=== PATIENT | female | born 1960 | race American Indian/Alaskan Native ===

== ENCOUNTER 2018-04-04 16:41 | Emergency (ER) | payer MEDICARE ==
[2018-04-04 17:53] LABS: Basophils # (Auto) 0.1 K/mm3 (0.0-0.1); Basophils % (Auto) 0.7 % (0.0-1.8); Eosinophils # (Auto) 0.1 K/mm3 (0.0-0.4); Eosinophils % (Auto) 1.6 % (0.0-4.3); Hematocrit 33.9 % (30.3-42.9); Lymphocytes # (Auto) 2.1 K/mm3 (1.2-5.4); Lymphocytes % (Auto) 30.6 % (13.4-35.0); Mean Corpuscular HGB Conc 32 % (30-34); Mean Corpuscular Volume 73 fl (79-97); Monocytes # (Auto) 0.3 K/mm3 (0.0-0.8); Platelet Count 489 K/mm3 (140-440); Red Blood Count 4.64 M/mm3 (3.65-5.03); Red Cell Distribution Width 18.3 % (13.2-15.2)
[2018-04-04 17:57] LABS: Mean Corpuscular Hemoglobin 24 pg (28-32)
[2018-04-04 18:11] LABS: BUN/Creatinine Ratio 14; Blood Urea Nitrogen 10 mg/dL (7-17); Calcium 9.2 mg/dL (8.4-10.2); Hemolysis Index 0
--- NOTE | 2018-04-04 18:51 | XRay Report ---
FINAL REPORT EXAM: XR CHEST ROUTINE 2V HISTORY: Shortness of breath TECHNIQUE: 2 view examination of the chest PRIORS: None FINDINGS: There is degenerative spondylosis of the thoracic spine. There is no consolidated pneumonia, effusion, or pneumothorax. Cardiac silhouette size is normal without vascular congestion. IMPRESSION: No evidence of acute cardiopulmonary disease
[2018-04-04] MEDS ORDERED: LIDOCAINE VISCOUS 2% PO ONE (20:10)
[2018-04-04] MEDS ORDERED: ALUM-MAG HYDROX-SIMETH 200-200-20MG/5ML PO ONE (20:10)
--- NOTE | 2018-04-04 20:42 | Emergency Department Report ---
ED Back Pain/Injury HPI - General Chief Complaint: Fall Stated Complaint: FALL Time Seen by Provider: 04/04/18 19:55 Source: patient Limitations: No Limitations - History of Present Illness Initial Comments: Ms mobley is a 57 year-old woman with hx of HTN, DM, asthma who presents from home with back pain, chest pain. Had fall this morning around 1045. Woke up , stood up from bed and became light headed. No CP or shortness of breath or palpitations. Sat down on the toilet. Still felt light headed. Had syncopal episode. Reports that she was wedged between toilet and shower, did not hit her head. Was able to free herself and called EMS. Declined transport as her vitals and exam were fine. No has mild R lower back pain that radiates thruogh her R hip. Able to walk with only minimal pain. Also with upper abdomen discomfort that radiates up into her midline chest. Feels like previous episodes of GERD. She does take zantac. No shortness of breath. No further syncopal episodes. No vomiting, no weakness, no tingling, no NGUYỄN, no changes in vision. MD Complaint: back pain, other (chest pain) Onset/Timin,045 -: Gradual Place: home Radiation: none Severity: mild Quality: dull Improves With: other (rest) Worsens With: movement Associated Symptoms: syncope - Related Data Previous Rx's Medication Instructions Recorded Last Taken Type Pen Needle, Diabetic [1St Tier 1 each QID #100 dis.needle 07/01/14 Unknown Rx Unifine Pentips] Tiotropium [Spiriva] 18 mcg IH QDAY #1 box 07/01/14 Unknown Rx Albuterol Sulfate [Ventolin HFA] 2 puff IH Q4H PRN #1 hfa.aer.ad 09/16/16 Unknown Rx Fluticasone/Salmeterol [Advair 1 puff IH BID #1 disk.w.dev 09/16/16 Unknown Rx Diskus 250-50 mcg] ALBUTEROL NEB's [Proventil 0.083% 2.5 mg IH Q6HRT nebu 03/28/17 Unknown Rx NEBS] Detemir (Nf) [Levemir (Nf)] 60 units SUB-Q QHS units 03/28/17 Unknown Rx Levothyroxine [Synthroid] 100 mcg PO DAILY@0600 tablet 03/28/17 Unknown Rx Lisinopril [Zestril TAB] 40 mg PO QDAY tablet 03/28/17 Unknown Rx amLODIPine [Norvasc] 10 mg PO DAILY tablet 03/28/17 Unknown Rx metFORMIN [Glucophage] 500 mg PO BIDDIAB tablet 03/28/17 Unknown Rx Prednisone [predniSONE 5 mg (6-Day 5 mg PO .TAPER #1 tab.ds.pk 02/17/18 Unknown Rx Pack, 21 Tabs)] Allergies Allergy/AdvReac Type Severity Reaction Status Date / Time No Known Allergies Allergy Verified 06/27/14 17:07 ED Review of Systems ROS: Stated complaint: FALL Other details as noted in HPI Comment: All other systems reviewed and negative ED Past Medical Hx - Past Medical History Previous Medical History?: Yes Hx Hypertension: Yes Hx Heart Attack/AMI: No Hx Congestive Heart Failure: Yes Hx Diabetes: Yes (12YRS) Hx Sickle Cell Disease: No Hx Headaches / Migraines: Yes Hx Seizures: No Hx Asthma: Yes Hx COPD: Yes Hx Dementia: No Hx HIV: No Additional medical history: hypothyroid - Surgical History Past Surgical History?: Yes Additional Surgical History: c-spine fusion, hysterectomy - Social History Smoking Status: Former Smoker Substance Use Type: Prescribed - Medications Home Medications: Home Medications Medication Instructions Recorded Confirmed Last Taken Type Pen Needle, Diabetic [1St Tier 1 each QID #100 dis.needle 07/01/14 02/14/18 Unknown Rx Unifine Pentips] Tiotropium [Spiriva] 18 mcg IH QDAY #1 box 07/01/14 02/14/18 Unknown Rx Albuterol Sulfate [Ventolin HFA] 2 puff IH Q4H PRN #1 hfa.aer.ad 09/16/16 Unknown Rx Fluticasone/Salmeterol [Advair 1 puff IH BID #1 disk.w.dev 09/16/16 02/14/18 Unknown Rx Diskus 250-50 mcg] ALBUTEROL NEB's [Proventil 0.083% 2.5 mg IH Q6HRT nebu 03/28/17 02/14/18 Unknown Rx NEBS] Detemir (Nf) [Levemir (Nf)] 60 units SUB-Q QHS units 03/28/17 02/14/18 Unknown Rx Levothyroxine [Synthroid] 100 mcg PO DAILY@0600 tablet 03/28/17 02/14/18 Unknown Rx Lisinopril [Zestril TAB] 40 mg PO QDAY tablet 03/28/17 02/14/18 Unknown Rx amLODIPine [Norvasc] 10 mg PO DAILY tablet 03/28/17 02/14/18 Unknown Rx metFORMIN [Glucophage] 500 mg PO BIDDIAB tablet 03/28/17 02/14/18 Unknown Rx Prednisone [predniSONE 5 mg (6-Day 5 mg PO .TAPER #1 tab.ds.pk 02/17/18 Unknown Rx Pack, 21 Tabs)] ED Physical Exam - General Limitations: No Limitations General appearance: alert, in no apparent distress - Head Head exam: Present: atraumatic, normocephalic - Eye Eye exam: Present: normal appearance - ENT ENT exam: Present: mucous membranes moist - Neck Neck exam: Present: normal inspection, full ROM. Absent: tenderness - Respiratory Respiratory exam: Present: normal lung sounds bilaterally. Absent: respiratory distress, wheezes, rales, chest wall tenderness - Cardiovascular Cardiovascular Exam: Present: regular rate, normal rhythm. Absent: systolic murmur, diastolic murmur, rubs, gallop - GI/Abdominal GI/Abdominal exam: Present: soft, tenderness (mild epigastric ttp), normal bowel sounds. Absent: distended - Extremities Exam Extremities exam: Present: normal inspection - Back Exam Back exam: Present: normal inspection, paraspinal tenderness (R mild paraspinal ttp without bruising, swelling). Absent: vertebral tenderness - Neurological Exam Neurological exam: Present: alert, oriented X3, normal gait - Psychiatric Psychiatric exam: Present: normal affect, normal mood - Skin Skin exam: Present: warm, dry, intact, normal color. Absent: rash ED Course Vital Signs 04/04/18 04/04/18 16:45 19:53 Temperature 98.8 F Pulse Rate 103 H 90 Respiratory 20 12 Rate Blood Pressure 165/108 Blood Pressure 136/98 [Left] O2 Sat by Pulse 100 100 Oximetry ED Medical Decision Making - Lab Data Result diagrams: 04/04/18 17:15 04/04/18 17:15 - EKG Data -: EKG Interpreted by Me (1659; HR 97, sinus, normal axis, intervals wnl, no ischemic ST changes) No standard instances Rhythm: NSR (2215: HR 81, sinus, normal axis, intervals wnl, no ischemic St changes) - Radiology Data Ordering Physician: BONNY GARCIA MD Date of Service: 04/04/18 Procedure(s): XR chest routine 2V Accession Number(s): [id number] cc: ED MD RADHA Fluoro Time In Minutes: FINAL REPORT EXAM: XR CHEST ROUTINE 2V HISTORY: Shortness of breath TECHNIQUE: 2 view examination of the chest PRIORS: None FINDINGS: There is degenerative spondylosis of the thoracic spine. There is no consolidated pneumonia, effusion, or pneumothorax. Cardiac silhouette size is normal without vascular congestion. IMPRESSION: No evidence of acute cardiopulmonary disease - Medical Decision Making Ms Mobley is a 57 year-old woman who presents with back pain after reported syncopal episode this morning. Mild lumbar back pain. No evidence of trauma: bruising/swelling. no midline spinal ttp. neuro intact. Walks with steady gait. Soudns like the syncopal event was related to hypotension/orthostasis. No chest pain/shortness of breath/palpitations. Now with GERD-like symptoms that radiates up into her chest. Given GI cocktail with initial improvement in symptoms. Initial trop neg. Initial EKG neg. before discharge, complaining of recurrent epigastri pain that radiates to her mid sternum. Again, low suspicion of ACS. Ordered another EKG/trop. Repeat also negative. Given PPI/H2 maryjane. Has zantac at home, but ran out. Some improvement. Has pcp appt friday. Will give PPI and H2 maryjane for home. No further issues with back pain. Given strict return precautions for chest pain, syncope, GERD, back pain. No red flag symptoms for back pain. Has been ambulatory and using the bathroom without difficulty. PCP appt Friday. Critical care attestation.: If time is entered above; I have spent that time in minutes in the direct care of this critically ill patient, excluding procedure time. ED Disposition Clinical Impression: Back pain Qualifiers: Back pain location: low back pain Chronicity: acute Back pain laterality: right Sciatica presence: without sciatica Qualified Code(s): M54.5 - Low back pain Abdominal pain Qualifiers: Abdominal location: epigastric Qualified Code(s): R10.13 - Epigastric pain Disposition: DC-01 TO HOME OR SELFCARE Is pt being admited?: No Does the pt Need Aspirin: No Condition: Stable Instructions: Gastroesophageal Reflux Disease (ED), Low Back Strain (ED) Referrals: PRIMARY CARE, [Primary Care Provider] - 04/07/18
[2018-04-04] MEDS ORDERED: PEPCID PO ONE (20:59)
[2018-04-04] MEDS ORDERED: PROTONIX PO SCH (21:00)
[2018-04-04] MEDS ORDERED: TYLENOL PO ONE (21:58)
[2018-04-04 23:19] VITALS: BP 133/85
== END 2018-04-04 23:22 | disposition home or self-care (01) ==
LOC: ED 16:41
DX: M54.5 Low back pain (principal); R10.13 Epigastric pain; I10 Essential (primary) hypertension; I50.9 Heart failure, unspecified; E11.9 Type 2 diabetes mellitus without complications; G43.909 Migraine, unspecified, not intractable, without status migrainosus; J45.909 Unspecified asthma, uncomplicated; E03.9 Hypothyroidism, unspecified; Z90.710 Acquired absence of both cervix and uterus; Z87.891 Personal history of nicotine dependence; W18.30XA Fall on same level, unspecified, initial encounter; Y93.89 Activity, other specified; Y99.8 Other external cause status; Y92.89 Other specified places as the place of occurrence of the external cause
CPT/HCPCS: 36415; 71046; 80048; 84484; 85025; 93005; 93010

== ENCOUNTER 2022-01-08 20:31 | Emergency (ER) | payer MEDICARE ==
[2022-01-08 21:08] VITALS: BP 137/83
--- NOTE | 2022-01-08 21:42 | XRay Report ---
LEFT HIP 2 VIEW(S) INDICATION / CLINICAL INFORMATION: FALL COMPARISON: None available. FINDINGS: BONES / JOINT(S): No acute fracture or subluxation. Mild degenerative change of the left hip joint. SOFT TISSUES: No significant abnormality. ADDITIONAL FINDINGS: None. Signer Name: Barrett Melissa MD Signed: 01/08/2022 9:38 PM Workstation Name: [id number]
--- NOTE | 2022-01-08 21:43 | XRay Report ---
LEFT KNEE 4 VIEW(S) INDICATION / CLINICAL INFORMATION: FALL COMPARISON: None available. FINDINGS: BONES / JOINT(S): No acute fracture or subluxation. Mild arthrosis of the left knee joint. SOFT TISSUES: No significant abnormality. ADDITIONAL FINDINGS: None. Signer Name: Barrett Melissa MD Signed: 01/08/2022 9:39 PM Workstation Name: [id number]
[2022-01-09] MEDS ORDERED: HYDROcodone/ACETAMINOPHEN 5-325 MG TAB PO STA (02:28)
--- NOTE | 2022-01-09 02:35 | Emergency Department Report ---
ED Fall HPI - General Chief Complaint: Fall Stated Complaint: LEFT KNEE PAIN Time Seen by Provider: 01/09/22 02:18 Source: patient, family Mode of arrival: Wheelchair - History of Present Illness Initial Comments: 61-year-old -[place] female with BMI 47 presents emergency department complaining of a mechanical trip and fall while walking into her apartment complex. States when she was typical onto the concrete she may have lost her footing causing her to trip and fall forward striking her left knee and hip. She was able to stand with pain to the knee but noticed an abrasion to the area and began developing pain to the left hip. No numbness or tingling, no loss of bowel bladder no saddle paresthesia, no fever, chills, sweats. -: Gradual Place Fall Occurred: home Prolonged Down Time?: no Symptoms Prior to Fall: none Location - Extremities: Left: Knee Severity: moderate Quality: dull Context: tripped/slipped Associated Symptoms: denies: neck pain, numbness, abdominal pain, hematuria - Related Data Previous Rx's Medication Instructions Recorded Last Taken Type Pen Needle, Diabetic [1St Tier 1 each MC QID #100 dis.needle 07/01/14 Unknown Rx Unifine Pentips] Tiotropium [Spiriva] 18 mcg IH QDAY #1 box 07/01/14 Unknown Rx Albuterol Sulfate [Ventolin HFA] 2 puff IH Q4H PRN #1 hfa.aer.ad 09/16/16 Unknown Rx Fluticasone/Salmeterol [Advair 1 puff IH BID #1 disk.w.dev 09/16/16 Unknown Rx Diskus 250-50 mcg] ALBUTEROL NEB's [Proventil 0.083% 2.5 mg IH Q6HRT nebu 03/28/17 Unknown Rx NEBS] Detemir (Nf) [Levemir (Nf)] 60 units SUB-Q QHS units 03/28/17 Unknown Rx Levothyroxine [Synthroid] 100 mcg PO DAILY@0600 tablet 03/28/17 Unknown Rx amLODIPine 10 mg PO DAILY tablet 03/28/17 Unknown Rx lisinopriL [Zestril TAB] 40 mg PO QDAY tablet 03/28/17 Unknown Rx metFORMIN [Glucophage] 500 mg PO BIDDIAB tablet 03/28/17 Unknown Rx Prednisone [predniSONE 5 mg (6-Day 5 mg PO .TAPER #1 tab.ds.pk 02/17/18 Unknown Rx Pack, 21 Tabs)] Omeprazole Magnesium [PriLOSEC Otc] 20 mg PO BID 30 Days #60 tab 04/04/18 Unknown Rx raNITIdine HCl [Zantac 150 MG TAB] 150 mg PO QDAY 30 Days #30 tablet 04/04/18 Unknown Rx methOCARBAMOL [Robaxin TAB] 750 mg PO Q8H #20 01/09/22 Unknown Rx traMADoL [Ultram] 50 mg PO Q6HR PRN #14 tablet 01/09/22 Unknown Rx Allergies Allergy/AdvReac Type Severity Reaction Status Date / Time No Known Allergies Allergy Verified 06/27/14 17:07 ED Review of Systems ROS: Stated complaint: LEFT KNEE PAIN Other details as noted in HPI Comment: All other systems reviewed and negative ED Past Medical Hx - Past Medical History Hx Hypertension: Yes Hx Heart Attack/AMI: No Hx Congestive Heart Failure: Yes Hx Diabetes: Yes (12YRS) Hx Sickle Cell Disease: No Hx Headaches / Migraines: Yes Hx Seizures: No Hx Asthma: Yes Hx COPD: Yes Hx Dementia: No Hx HIV: No Additional medical history: hypothyroid - Surgical History Additional Surgical History: c-spine fusion, hysterectomy - Social History Smoking Status: Former Smoker Substance Use Type: Prescribed - Medications Home Medications: Home Medications Medication Instructions Recorded Confirmed Last Taken Type Pen Needle, Diabetic [1St Tier 1 each QID #100 dis.needle 07/01/14 02/14/18 Unknown Rx Unifine Pentips] Tiotropium [Spiriva] 18 mcg IH QDAY #1 box 07/01/14 02/14/18 Unknown Rx Albuterol Sulfate [Ventolin HFA] 2 puff IH Q4H PRN #1 hfa.aer.ad 09/16/16 02/14/18 Unknown Rx Fluticasone/Salmeterol [Advair 1 puff IH BID #1 disk.w.dev 09/16/16 02/14/18 Unknown Rx Diskus 250-50 mcg] ALBUTEROL NEB's [Proventil 0.083% 2.5 mg IH Q6HRT nebu 03/28/17 02/14/18 Unknown Rx NEBS] Detemir (Nf) [Levemir (Nf)] 60 units SUB-Q QHS units 03/28/17 02/14/18 Unknown Rx Levothyroxine [Synthroid] 100 mcg PO DAILY@0600 tablet 03/28/17 02/14/18 Unknown Rx amLODIPine 10 mg PO DAILY tablet 03/28/17 02/14/18 Unknown Rx lisinopriL [Zestril TAB] 40 mg PO QDAY tablet 03/28/17 02/14/18 Unknown Rx metFORMIN [Glucophage] 500 mg PO BIDDIAB tablet 03/28/17 02/14/18 Unknown Rx Prednisone [predniSONE 5 mg (6-Day 5 mg PO .TAPER #1 tab.ds.pk 02/17/18 Unknown Rx Pack, 21 Tabs)] Omeprazole Magnesium [PriLOSEC Otc] 20 mg PO BID 30 Days #60 tab 04/04/18 Unknown Rx raNITIdine HCl [Zantac 150 MG TAB] 150 mg PO QDAY 30 Days #30 tablet 04/04/18 Unknown Rx methOCARBAMOL [Robaxin TAB] 750 mg PO Q8H #20 01/09/22 Unknown Rx traMADoL [Ultram] 50 mg PO Q6HR PRN #14 tablet 01/09/22 Unknown Rx ED Physical Exam - General Limitations: No Limitations General appearance: alert, in no apparent distress - Head Head exam: Present: atraumatic, normocephalic - Eye Eye exam: Present: normal appearance, EOMI. Absent: PERRL Pupils: Present: normal accommodation - ENT ENT exam: Present: normal exam, normal orophraynx, mucous membranes moist, TM's normal bilaterally - Neck Neck exam: Present: normal inspection, full ROM - Respiratory Respiratory exam: Present: normal lung sounds bilaterally. Absent: respiratory distress, wheezes, rales, chest wall tenderness, accessory muscle use - Cardiovascular Cardiovascular Exam: Present: regular rate, normal rhythm. Absent: systolic murmur, diastolic murmur, rubs, gallop - GI/Abdominal GI/Abdominal exam: Present: soft, normal bowel sounds. Absent: distended, tenderness, guarding, hyperactive bowel sounds, hypoactive bowel sounds, organomegaly - Extremities Exam Extremities exam: Present: normal inspection, full ROM, tenderness (Tenderness to the left knee is noted. Hematoma and abrasion is present. Normal varus and valgus joint is stable. Pulses 2+ no popliteal mass.), normal capillary refill. Absent: pedal edema, joint swelling - Expanded Lower Extremity Exam Left Hip exam: Present: tenderness. Absent: swelling, abrasion, laceration, ecchymosis, erythema, internal rotation, shortening - Back Exam Back exam: Present: normal inspection. Absent: CVA tenderness (R), CVA tenderness (L) - Neurological Exam Neurological exam: Present: alert, oriented X3, CN II-XII intact, normal gait - Psychiatric Psychiatric exam: Present: normal affect, normal mood - Skin Skin exam: Present: warm, dry, intact, normal color. Absent: rash ED Course Vital Signs 01/08/22 21:06 Temperature 98.5 F Pulse Rate 69 Respiratory 20 Rate Blood Pressure 137/83 O2 Sat by Pulse 96 Oximetry ED Medical Decision Making - Radiology Data Radiology results: report reviewed [facility] [address] [place] [address] XRay Report Signed Patient: FELICITA LA MR#: [id number] : 1960 Acct:[id number] Age/Sex: 61 / F ADM Date: 01/08/22 Loc: ED Attending Dr: Ordering Physician: ED MD RADHA Date of Service: 01/08/22 Procedure(s): XR knee 3V LT Accession Number(s): [id number] cc: ED MD RADHA Fluoro Time In Minutes: LEFT KNEE 4 VIEW(S) INDICATION / CLINICAL INFORMATION: FALL COMPARISON: None available. FINDINGS: BONES / JOINT(S): No acute fracture or subluxation. Mild arthrosis of the left knee joint. SOFT TISSUES: No significant abnormality. ADDITIONAL FINDINGS: None. Signer Name: Barrett Fontaine MD Signed: 01/08/2022 9:39 PM Workstation Name: [id number] Transcribed By: SB Dictated By: BARRETT FONTAINE MD Electronically Authenticated By: BARRETT FONTAINE MD Signed Date/Time: 01/08/222138 DD/ 37 TD/TT: Print Cancel - Medical Decision Making 41-year-old female presents emerge department status post trip and fall mechanical landing on hip and knee resulting in bruising to each area no fractures were discovered on the x-ray. Discussed with patient the need to keep the abrasion clean to prevent infection and utilize ice anti-inflammatories for the other injuries. She returns emergency department should she feel her condition is worsening Critical care attestation.: If time is entered above; I have spent that time in minutes in the direct care of this critically ill patient, excluding procedure time. ED Disposition Clinical Impression: Abrasion of left knee, Contusion of left knee, Contusion of left hip Disposition: HOME / SELF CARE / HOMELESS Is pt being admited?: No Does the pt Need Aspirin: No Condition: Stable Instructions: Abrasion, Contusion, [id number], Wound Care, Adult, How to Use Cold Therapy Prescriptions: methOCARBAMOL [Robaxin TAB] 750 mg PO Q8H #20 traMADoL [Ultram] 50 mg PO Q6HR PRN #14 tablet PRN Reason: Pain Referrals: DARCIE RECINOS MD [Primary Care Provider] - 3-5 Days
== END 2022-01-09 02:40 | disposition home or self-care (01) ==
LOC: ED 20:31
DX: S80.02XA Contusion of left knee, initial encounter (principal); S70.02XA Contusion of left hip, initial encounter; S80.212A Abrasion, left knee, initial encounter; I10 Essential (primary) hypertension; J45.909 Unspecified asthma, uncomplicated; X58.XXXA Exposure to other specified factors, initial encounter; Y93.89 Activity, other specified; Y92.89 Other specified places as the place of occurrence of the external cause; Y99.8 Other external cause status; Z87.891 Personal history of nicotine dependence
CPT/HCPCS: 99283